=== PATIENT | male | born 1995 | race Caucasian/White ===

== ENCOUNTER 2018-07-03 22:19 | Inpatient (IN) | payer BC ==
[~2018-07-03] VITALS: Ht 182.9 cm; Wt 67.3 kg
[2018-07-03 23:40] VITALS: BP 99/50; PULSE 87; RESP 18
[2018-07-04] VITALS (12 sets, daily range): BP systolic 102–128; BP diastolic 52–79; PULSE 61–90; RESP 18–20; Ht 182.9 cm; Wt 67.3 kg
[2018-07-04] MEDS ORDERED: VANCOMYCIN IV PER PHARMACY XX SCH (03:00)
[2018-07-04] MEDS ORDERED: HYDROCODONE/APAP (5/325) TAB PO PRN (03:00)
[2018-07-04] MEDS ORDERED: ONDANSETRON 4 MG TAB PO PRN (03:00)
[2018-07-04] MEDS ORDERED: VANCOMYCIN HCL 1.25 GM in SOD CHLORIDE 0.9% 250 ML IVPB ONE (03:00)
[2018-07-04] MEDS ORDERED: ACETAMINOPHEN 325 MG TAB PO PRN (03:00)
[2018-07-04] MEDS: SOD CHLORIDE 0.9% 1,000 ML IV SCH ×3 (04:23→22:39)
[2018-07-04] MEDS: PIPER-TAZO 3.375 GM IV (PMX) 100 ML IVPB SCH ×3 (05:35→21:25)
[2018-07-04] MEDS: PANTOPRAZOLE (EC) 40 MG TAB PO SCH (05:35)
[2018-07-04] MEDS: [UNRECOGNIZED DRUG - OTHER] BUCCAL SCH ×2 (05:47→23:02)
[2018-07-04] MEDS: NALOXONE BUCCAL SCH ×2 (05:47→23:02)
[2018-07-04] MEDS: VANCOMYCIN 1 GM 250 ML IVPB SCH ×3 (06:56→22:37)
[2018-07-04] MEDS ORDERED: SOD CHLORIDE 0.9% 100 ML ONE (13:29)
[2018-07-04] MEDS ORDERED: IOHEXOL 300MG/ML 150 ML BTL ONE (13:29)
--- NOTE | 2018-07-04 13:29 | HP ---
MAUROLAILATAMMYJoshCLAUDIA 07/04/18 1323: Date/Time of Note Date/Time of Note DATE: 07/04/18 TIME: 12:50 Assessment/Plan VTE Prophylaxis Risk score (from [facility] [place] risk: 1 SCD applied (from [facility] [place] No SCD contraindicated: low risk/ambulating Pharmacological prophylaxis: LMWH Lines/Catheters [facility] Per[facility] IV Assessment/Plan Hospital Course 1. Cellulitis right arm 2. Superficial thrombophlebitis right cephalic vein in the forearm 3. Polysubstance abuse 4. Anemia normocytic Assessment/Plan -DVT proph Lovenox 40 mg -GI prophylaxis Protonix -c/w IV fluids -warm compresses -c/w IV fluids -psych consult shakir Starks -Dr Deutsch consultation, called Result Diagram: 07/04/18 0620 Results 24hrs Laboratory Tests Test 07/04/18 06:20 Blood Urea Nitrogen 17 Creatinine 0.86 HPI/ROS Admit Date/Time Admit Date/Time July 03, 2018 at 23:39 Hx of Present Illness This 22-year-old male with a history of polysubstance abuse after injections of heroine 1 week ago had edema and pain in his right arm. Eventually he went to [facility] on July 03, 2018 and ultrasound of extremity showed superficial thrombophlebitis of the cephalic vein, diffusely edematous primitive and echogenic soft tissue reflecting cellulitis, formed fluid collection to suggest abscess. CBC was drawn that showed WBC 9.5 RBC 4.35 hemoglobin 12.3 hematocrit 37 MCV 85 MCH 28 platelets 197% of neutrophiles 78.9 and rest is normal BMP showed sodium 128 potassium 4.2 chloride 90 CO2 22 anion gap 16 glucose 106 BUN 12 creatinine 0.79, 9.5 albumin 4.1 bilirubin 0.5 total protein 8.5 AST 29 ALT 20 alkaline phosphatase 104 globulin 4.4 there was a urinalysis performed that show 6-10 RBC. 0.5 WBC and 30 mg/dL protein in urine In the emergency room vital signs were normal consent of CBC were drawn the WBC was down to 8.3-3.9 hemoglobin 11.9 hematocrit 35. Patient was transferred from the emergency room to [facility] per insurance purposes under care of Dr. Hatfield. ROS does not want to talk in withdraw stage Eyes: no complaints Respiratory: no complaints Cardiovascular: no complaints Gastrointestinal: no complaints Musculoskeletal: restricted range of motion, swelling ( right arm) PMH/Family/Social Past Medical History Medical History: no pertinent history Medications Current Medications Sodium Chloride 1,000 ml @ 100 mls/hr Q10H IV Last administered on 07/04/18at 04:23; Admin Dose 100 MLS/HR; Start 07/04/18 at 03:00 Vancomycin HCl (Vanco Iv Per Pharmacy) VANCOMYCIN PER PHARMACY PER PROTOCOL XX ; Start 07/04/18 at 03:00 Piperacillin Sod/ Tazobactam Sod 100 ml @ 200 mls/hr Q8 IVPB Last administered on 07/04/18at 05:35; Admin Dose 200 MLS/HR; Start 07/04/18 at 06:00 Acetaminophen (Tylenol Tab) 650 mg Q6H PRN PO MILD PAIN(1-3)OR ELEVATED TEMP; Start 07/04/18 at 03:00 Ondansetron HCl (Zofran Tab) 4 mg Q6H PRN PO NAUSEA AND/OR VOMITING; Start at 03:00 Pantoprazole (Protonix Tab) 40 mg DAILY@06 PO Last administered on 07/04/18at 05:35; Admin Dose 40 MG; Start 07/04/18 at 06:00 Vancomycin HCl 250 ml @ 125 mls/hr Q8H IVPB Last administered on 07/04/18at 06:56; Admin Dose 125 MLS/HR; Start 07/04/18 at 07:00 Non-Formulary Medication 1 ea BID BUCCAL Last administered on 07/04/18at 05:47; Admin Dose 1 EA; Start 07/04/18 at 09:00; Stop 07/05/18 at 21:01 Non-Formulary Medication 0.5 ea TID BUCCAL ; Start 07/06/18 at 09:00; Stop 07/07/18 at 21:01 Non-Formulary Medication 0.5 ea BID BUCCAL ; Start 07/08/18 at 09:00; Stop 07/09/18 at 21:01 Coded Allergies: No Known Allergy (Unverified , 07/04/18) Past Surgical History Past Surgical Hx: other (Mole removal) Social History Alcohol Use: none Smoking Status: Current every day smoker Drug Use: other (Vaping) Exam/Review of Systems Vital Signs Vitals Vital Signs Date Temp Pulse Resp B/P (MAP) Pulse Ox O2 O2 Flow FiO2 Time Delivery Rate 07/04/18 75 12:16 07/04/18 99.1 18 114/62 98 11:04 (79) 07/04/18 Room Air 04:13 Intake and Output 07/03/18 07/03/18 07/04/18 1515:00 23:00 07:00 IntakeIntake Total 250 ml OutputOutput Total 400 ml BalanceBalance -150 ml Exam Exam Numerous tattoos Constitutional: alert, oriented Psych: no complaints Head: normocephalic Respiratory: clear to auscultation Cardiovascular: regular rate and rhythm Gastrointestinal: soft Genitourinary - Male: CVA tenderness; No nl penis, No nl scrotum, No discharge, No other Musculoskeletal: swelling (Right arm, numerous scars) AB HATFIELD MD 07/04/18 1610: Assessment/Plan Assessment/Plan Assessment/Plan seen and examined rue edema/celliultis/hematoma iv abx suboxane id consult dr deutsch Result Diagram: 07/04/18 0620 PMH/Family/Social Past Medical History Coded Allergies: No Known Allergy (Unverified , 07/04/18) CLAUDIA LEMUS July 04, 2018 13:23 AB HATFIELD MD July 04, 2018 16:10
[2018-07-04] MEDS: ENOXAPARIN 40 MG/0.4 ML SYG SC SCH (14:36)
--- NOTE | 2018-07-04 18:13 | CONS ---
DATE OF ADMISSION: 07/03/2018 DATE OF CONSULTATION: 07/04/2018 TYPE OF CONSULTATION: Infectious disease. REQUESTING PHYSICIAN: Lizzy Hatfield MD Thank you for this consultation. HISTORY OF PRESENT ILLNESS: This is a young white man with a history of heroin abuse who was admitted with right upper extremity cellulitis, superficial thrombophlebitis. Patient is currently on IV vancomycin and Zosyn. His BUN is 17, creatinine 0.86. I do not have any results of his CBC yet. CT of the right upper extremity revealed diffuse soft tissue swelling without focal abscess detected, suggestive of cellulitis. Please see full report in the chart. VITAL SIGNS: Temperature 98.8, pulse 80, respirations 19, blood pressure 111/57, saturation 99% on room air. SOCIAL HISTORY: The patient is a drug addict. He lives on and off with his mother who is at bedside. PHYSICAL EXAMINATION: GENERAL: Well-developed, well-nourished young man who is sleeping, arousable, in no distress. HEENT: Head atraumatic, normocephalic. NECK: Supple. CHEST: Rise symmetrical. Breath sounds diminished to bases. HEART: S1, S2. ABDOMEN: Soft, bowel sounds present. EXTREMITIES: With right upper extremity edema, erythema, swelling and very painful to touch and also with range of motion. DIAGNOSTIC IMPRESSION: A 22-year-old man with a history of drug abuse, admitted with right upper extremity cellulitis. The patient also has superficial thrombophlebitis. He is on appropriate antithrombotic regimen. PLAN: Recommend to keep his right upper extremity elevated and apply warm moist compresses. Monitor renal function. Await for clinical improvement. SRINIVASA Medley Dictated By: THOMAS JAIMES DATA ANALYST for CHRIS CLIFTON MD NI/NTS Conf#: [id number] DID#: [id number] CC: LIZZY HATFIELD;*EndCC* MTDD
--- NOTE | 2018-07-04 22:11 | CONS ---
Assessment/Plan Assessment/Plan Hospital Course (Demo Recall) + bld cx per report from another facility. Consider 2D ECHO. Repeat bld cx Consultation Date/Type/Reason Admit Date/Time July 03, 2018 at 23:39 Initial Consult Date Type of Consult id Date/Time of Note DATE: 07/04/18 TIME: 22:11 Exam/Review of Systems Exam Vitals Vital Signs Date Temp Pulse Resp B/P (MAP) Pulse Ox O2 O2 Flow FiO2 Time Delivery Rate 07/04/18 80 20:00 07/04/18 98.7 18 111/60 98 19:39 (77) 07/04/18 Room Air 04:13 Intake and Output 07/03/18 07/03/18 07/04/18 1515:00 23:00 07:00 IntakeIntake Total 250 ml OutputOutput Total 400 ml BalanceBalance -150 ml Results Result Diagram: 07/04/18 0620 Results 24hrs Laboratory Tests Test 07/04/18 06:20 Blood Urea Nitrogen 17 Creatinine 0.86 Medications Medication Current Medications Sodium Chloride 1,000 ml @ 100 mls/hr Q10H IV Last administered on 07/04/18at 14:30; Admin Dose 100 MLS/HR; Start 07/04/18 at 03:00 Vancomycin HCl (Vanco Iv Per Pharmacy) VANCOMYCIN PER PHARMACY PER PROTOCOL XX ; Start 07/04/18 at 03:00 Piperacillin Sod/ Tazobactam Sod 100 ml @ 200 mls/hr Q8 IVPB Last administered on 07/04/18at 21:25; Admin Dose 200 MLS/HR; Start 07/04/18 at 06:00 Acetaminophen (Tylenol Tab) 650 mg Q6H PRN PO MILD PAIN(1-3)OR ELEVATED TEMP; Start 07/04/18 at 03:00 Ondansetron HCl (Zofran Tab) 4 mg Q6H PRN PO NAUSEA AND/OR VOMITING; Start 07/04/18 at 03:00 Pantoprazole (Protonix Tab) 40 mg DAILY@06 PO Last administered on 07/04/18at 05:35; Admin Dose 40 MG; Start 07/04/18 at 06:00 Vancomycin HCl 250 ml @ 125 mls/hr Q8H IVPB Last administered on 07/04/18at 14:30; Admin Dose 125 MLS/HR; Start 07/04/18 at 07:00 Non-Formulary Medication 1 ea BID BUCCAL Last administered on 07/04/18at 05:47; Admin Dose 1 EA; Start 07/04/18 at 09:00; Stop 07/05/18 at 21:01 Non-Formulary Medication 0.5 ea TID BUCCAL ; Start 07/06/18 at 09:00; Stop 07/07/18 at 21:01 Non-Formulary Medication 0.5 ea BID BUCCAL ; Start 07/08/18 at 09:00; Stop 07/09/18 at 21:01 Miscellaneous Information (*Rx Drug Level Order Reminder*) VANCO TR LEVEL PRIOR... 1400 ONCE XX ; Start 07/05/18 at 14:00; Stop 07/05/18 at 14:01 Enoxaparin Sodium (Lovenox) 40 mg DAILY SC Last administered on 07/04/18at 14:36; Admin Dose 40 MG; Start 07/04/18 at 14:00 Neomycin/ Polymyxin/ Bacitracin (Neosporin Topical Oint) 1 applic BID TOP ; Start 07/04/18 at 23:00 THOMAS JAIMES NP July 04, 2018 22:11
[2018-07-04] MEDS ORDERED: NITROGLYCERIN (SL) 0.4 MG TAB SL PRN (22:30)
[2018-07-04] MEDS: NEOMYC/POLYMYX/BACIT 30 GM OINT TOP SCH (23:50)
[2018-07-05] VITALS (12 sets, daily range): BP systolic 97–114; BP diastolic 44–79; PULSE 66–77; RESP 18–19
[2018-07-05] MEDS: PANTOPRAZOLE (EC) 40 MG TAB PO SCH (05:39)
[2018-07-05] MEDS: PIPER-TAZO 3.375 GM IV (PMX) 100 ML IVPB SCH ×3 (05:41→21:18)
[2018-07-05] MEDS: SOD CHLORIDE 0.9% 1,000 ML IV SCH ×3 (06:00→21:00)
[2018-07-05] MEDS: VANCOMYCIN 1 GM 250 ML IVPB SCH ×3 (06:31→22:51)
[2018-07-05] MEDS: NEOMYC/POLYMYX/BACIT 30 GM OINT TOP SCH ×2 (08:46→21:18)
[2018-07-05] MEDS: ENOXAPARIN 40 MG/0.4 ML SYG SC SCH (08:55)
--- NOTE | 2018-07-05 08:59 | PN ---
Date/Time of Note Date/Time of Note DATE: 07/05/18 TIME: 08:59 Assessment/Plan VTE Prophylaxis Risk score (from [facility] [place]0 risk: 1 SCD applied (from [facility] [place]): No SCD contraindicated: other Pharmacological prophylaxis: LMWH Lines/Catheters IV Catheter Type (from [facility]): Peripheral IV Urinary Cath still in place: No Assessment/Plan Hospital Course 1. Sepsis. Blood culture from [facility] is positive. Cellulitis right arm 2. Superficial thrombophlebitis right cephalic vein in the forearm 3. Polysubstance abuse 4. Anemia normocytic Assessment/Plan -echocardiogram -c/w IV fluids -c/w IV a/b. ID on case -dr Webb is on case -telemetry service Result Diagram: 07/05/18 0607 07/05/18 0607 Results 24hrs Laboratory Tests Test 07/04/18 22:31 07/05/18 06:07 Troponin I < 0.012 < 0.012 White Blood Count 6.0 Red Blood Count 4.15 L Hemoglobin 11.4 L Hematocrit 36.3 L Mean Corpuscular Volume 87.5 Mean Corpuscular Hemoglobin 27.5 L Mean Corpuscular Hemoglobin Concent 31.4 L Red Cell Distribution Width 13.7 Platelet Count 209 Mean Platelet Volume 9.7 Immature Granulocytes % 0.200 Neutrophils % 55.5 Lymphocytes % 27.5 Monocytes % 15.1 H Eosinophils % 1.0 Basophils % 0.7 Nucleated Red Blood Cells % 0.0 Immature Granulocytes # 0.010 Neutrophils # 3.4 Lymphocytes # 1.7 Monocytes # 0.9 Eosinophils # 0.1 Basophils # 0.0 Nucleated Red Blood Cells # 0.0 Sodium Level 138 Potassium Level 4.0 Chloride Level 104 Carbon Dioxide Level 28 Anion Gap 6 Blood Urea Nitrogen 16 Creatinine 0.76 Est Glomerular Filtrat Rate mL/min > 60 Glucose Level 92 Calcium Level 8.6 Exam/Review of Systems Exam Vitals Vital Signs Date Temp Pulse Resp B/P (MAP) Pulse Ox O2 O2 Flow FiO2 Time Delivery Rate 07/05/18 98.6 77 18 99/57 (71) 96 07:53 07/04/18 Room Air 04:13 Intake and Output 07/04/18 07/04/18 07/05/18 1515:00 23:00 07:00 IntakeIntake Total 2350 ml 2070 ml OutputOutput Total 700 ml 800 ml BalanceBalance 1650 ml 1270 ml Exam sleeping Neck: supple Respiratory: clear to auscultation Cardiovascular: regular rate and rhythm Gastrointestinal: soft Musculoskeletal: swelling (right arm) Results Results 24hrs Laboratory Tests Test 07/04/18 22:31 07/05/18 06:07 Troponin I < 0.012 < 0.012 White Blood Count 6.0 Red Blood Count 4.15 L Hemoglobin 11.4 L Hematocrit 36.3 L Mean Corpuscular Volume 87.5 Mean Corpuscular Hemoglobin 27.5 L Mean Corpuscular Hemoglobin Concent 31.4 L Red Cell Distribution Width 13.7 Platelet Count 209 Mean Platelet Volume 9.7 Immature Granulocytes % 0.200 Neutrophils % 55.5 Lymphocytes % 27.5 Monocytes % 15.1 H Eosinophils % 1.0 Basophils % 0.7 Nucleated Red Blood Cells % 0.0 Immature Granulocytes # 0.010 Neutrophils # 3.4 Lymphocytes # 1.7 Monocytes # 0.9 Eosinophils # 0.1 Basophils # 0.0 Nucleated Red Blood Cells # 0.0 Sodium Level 138 Potassium Level 4.0 Chloride Level 104 Carbon Dioxide Level 28 Anion Gap 6 Blood Urea Nitrogen 16 Creatinine 0.76 Est Glomerular Filtrat Rate mL/min > 60 Glucose Level 92 Calcium Level 8.6 Medications Medication Current Medications Sodium Chloride 1,000 ml @ 100 mls/hr Q10H IV Last administered on 07/05/18at 06:00; Admin Dose 100 MLS/HR; Start 07/04/18 at 03:00 Vancomycin HCl (Vanco Iv Per Pharmacy) VANCOMYCIN PER PHARMACY PER PROTOCOL XX ; Start 07/04/18 at 03:00 Piperacillin Sod/ Tazobactam Sod 100 ml @ 200 mls/hr Q8 IVPB Last administered on 07/05/18at 05:41; Admin Dose 200 MLS/HR; Start 07/04/18 at 06:00 Acetaminophen (Tylenol Tab) 650 mg Q6H PRN PO MILD PAIN(1-3)OR ELEVATED TEMP; Start 07/04/18 at 03:00 Ondansetron HCl (Zofran Tab) 4 mg Q6H PRN PO NAUSEA AND/OR VOMITING; Start 07/04/18 at 03:00 Pantoprazole (Protonix Tab) 40 mg DAILY@06 PO Last administered on 07/04/18at 05:35; Admin Dose 40 MG; Start 07/04/18 at 06:00 Vancomycin HCl 250 ml @ 125 mls/hr Q8H IVPB Last administered on 07/05/18at 06:31; Admin Dose 125 MLS/HR; Start 07/04/18 at 07:00 Non-Formulary Medication 1 ea BID BUCCAL Last administered on 07/04/18at 23:02; Admin Dose 1 EA; Start 07/04/18 at 09:00; Stop 07/05/18 at 21:01 Non-Formulary Medication 0.5 ea TID BUCCAL ; Start 07/06/18 at 09:00; Stop 07/07/18 at 21:01 Non-Formulary Medication 0.5 ea BID BUCCAL ; Start 07/08/18 at 09:00; Stop 07/09/18 at 21:01 Miscellaneous Information (*Rx Drug Level Order Reminder*) VANCO TR LEVEL PRIOR... 1400 ONCE XX ; Start 07/05/18 at 14:00; Stop 07/05/18 at 14:01 Enoxaparin Sodium (Lovenox) 40 mg DAILY SC Last administered on 07/05/18at 08:55; Admin Dose 40 MG; Start 07/04/18 at 14:00 Neomycin/ Polymyxin/ Bacitracin (Neosporin Topical Oint) 1 applic BID TOP Last administered on 07/05/18at 08:46; Admin Dose 1 APPLIC; Start 07/04/18 at 23:00 Nitroglycerin (Nitroglycerin (Sl Tab) 0.4 Mg) 1 tab Q5M PRN SL ANGINA Last administered on 07/04/18at 22:22; Admin Dose 1 TAB; Start 07/04/18 at 22:30 CLAUDIA LEMUS July 05, 2018 08:59
[2018-07-05] MEDS: [UNRECOGNIZED DRUG - OTHER] BUCCAL SCH ×2 (09:28→22:37)
[2018-07-05] MEDS: NALOXONE BUCCAL SCH ×2 (09:28→22:37)
[2018-07-05] MEDS ORDERED: BISACODYL (EC) 5 MG TAB PO PRN (16:30)
[2018-07-05] MEDS: POLYETHYLENE GLYCOL 17 GM PACKET PO SCH (16:44)
--- NOTE | 2018-07-05 19:04 | CONS ---
Assessment/Plan Assessment/Plan Hospital Course (Demo Recall) ID PROGRESS NOTE CURRENT ABX: DAY #=>Vanco IV + Zosyn 24H INTERVAL SUMMARY * Sleeping, no fevers, VSS, NAD -- chart reviewed IMAGING * 07/04/18 CT RUEXT: IMPRESSION: Diffuse soft tissue swelling without focal abscess detected. Findings suggest cellulitis. There is evidence of a filling defects/clot in a superficial, possibly basilic vein at the mid forearm. Recommend venous Doppler ultrasound of the upper extremity for further evaluation. MICRO/OTHER * (?)MRSA NARES PHYSICAL EXAMINATION: GENERAL: VSS, NAD, HEENT: AT, NC, NECK: WNL CHEST: Equal chest rise bilaterally without dyspnea on observation ABD: Soft, ND EXTREMITIES: Warm, dry RUEXT EDEMA/ erythema SKIN: No rash, no diaphoresis ID ASSESSMENT 22 yo M admit with: 1. Sepsis. Blood culture from [place] is positive. 2. Cellulitis right arm w/injection wounds 3. Left arm scrape wound 4. Superficial thrombophlebitis right cephalic vein in the forearm 5. Polysubstance abuse 6. Anemia normocytic 7. Tobaccoism - 1PPWeek (?)MRSA Nares ABX ALLERGIES: KNDA INVASIVES: PIV CURRENT ABX: DAY # =>Vanco IV + Zosyn ID RECOMMENDATIONS/PLAN: 1. Continue current ABX 2. Will f/u tomorrow . Consultation Date/Type/Reason Admit Date/Time July 03, 2018 at 23:39 Initial Consult Date Date/Time of Note DATE: 07/05/18 TIME: 19:04 Exam/Review of Systems Exam Vitals Vital Signs Date Temp Pulse Resp B/P (MAP) Pulse Ox O2 O2 Flow FiO2 Time Delivery Rate 07/05/18 66 16:00 07/05/18 98.4 19 109/59 97 15:41 (76) 07/04/18 Room Air 04:13 Intake and Output 07/04/18 07/04/18 07/05/18 1515:00 23:00 07:00 IntakeIntake Total 2350 ml 2070 ml OutputOutput Total 700 ml 800 ml BalanceBalance 1650 ml 1270 ml Results Result Diagram: 07/05/18 0607 07/05/18 0607 Results 24hrs Laboratory Tests Test 07/04/18 22:31 07/05/18 06:07 07/05/18 10:06 07/05/18 14:31 Troponin I < 0.012 < 0.012 < 0.012 White Blood Count 6.0 Red Blood Count 4.15 L Hemoglobin 11.4 L Hematocrit 36.3 L Mean Corpuscular 87.5 Volume Mean Corpuscular 27.5 L Hemoglobin Mean Corpuscular 31.4 L Hemoglobin Concent Red Cell 13.7 Distribution Width Platelet Count 209 Mean Platelet Volume 9.7 Immature 0.200 Granulocytes % Neutrophils % 55.5 Lymphocytes % 27.5 Monocytes % 15.1 H Eosinophils % 1.0 Basophils % 0.7 Nucleated Red Blood 0.0 Cells % Immature 0.010 Granulocytes # Neutrophils # 3.4 Lymphocytes # 1.7 Monocytes # 0.9 Eosinophils # 0.1 Basophils # 0.0 Nucleated Red Blood 0.0 Cells # Sodium Level 138 Potassium Level 4.0 Chloride Level 104 Carbon Dioxide Level 28 Anion Gap 6 Blood Urea Nitrogen 16 Creatinine 0.76 Est Glomerular > 60 Filtrat Rate mL/min Glucose Level 92 Calcium Level 8.6 Vancomycin Level 13.5 Trough Medications Medication Current Medications Sodium Chloride 1,000 ml @ 100 mls/hr Q10H IV Last administered on 07/05/18at 06:00; Admin Dose 100 MLS/HR; Start 07/04/18 at 03:00 Vancomycin HCl (Vanco Iv Per Pharmacy) VANCOMYCIN PER PHARMACY PER PROTOCOL XX ; Start 07/04/18 at 03:00 Piperacillin Sod/ Tazobactam Sod 100 ml @ 200 mls/hr Q8 IVPB Last administered on 07/05/18at 14:14; Admin Dose 200 MLS/HR; Start 07/04/18 at 06:00 Acetaminophen (Tylenol Tab) 650 mg Q6H PRN PO MILD PAIN(1-3)OR ELEVATED TEMP; Start 07/04/18 at 03:00 Ondansetron HCl (Zofran Tab) 4 mg Q6H PRN PO NAUSEA AND/OR VOMITING; Start 07/04/18 at 03:00 Pantoprazole (Protonix Tab) 40 mg DAILY@06 PO Last administered on 07/04/18at 05:35; Admin Dose 40 MG; Start 07/04/18 at 06:00 Vancomycin HCl 250 ml @ 125 mls/hr Q8H IVPB Last administered on 07/05/18at 15:45; Admin Dose 125 MLS/HR; Start 07/04/18 at 07:00 Non-Formulary Medication 1 ea BID BUCCAL Last administered on 07/05/18at 09:28; Admin Dose 1 EA; Start 07/04/18 at 09:00; Stop 07/05/18 at 21:01 Non-Formulary Medication 0.5 ea TID BUCCAL ; Start 07/06/18 at 09:00; Stop 07/07/18 at 21:01 Non-Formulary Medication 0.5 ea BID BUCCAL ; Start 07/08/18 at 09:00; Stop 07/09/18 at 21:01 Enoxaparin Sodium (Lovenox) 40 mg DAILY SC Last administered on 07/05/18at 08:55; Admin Dose 40 MG; Start 07/04/18 at 14:00 Neomycin/ Polymyxin/ Bacitracin (Neosporin Topical Oint) 1 applic BID TOP Last administered on 07/05/18at 08:46; Admin Dose 1 APPLIC; Start 07/04/18 at 23:00 Nitroglycerin (Nitroglycerin (Sl Tab) 0.4 Mg) 1 tab Q5M PRN SL ANGINA Last administered on 07/04/18at 22:22; Admin Dose 1 TAB; Start 07/04/18 at 22:30 Polyethylene Glycol (Miralax) 17 gm DAILY PO Last administered on 07/05/18at 16:44; Admin Dose 17 GM; Start 07/05/18 at 16:30 Bisacodyl (Dulcolax) 5 mg BID PRN PO constipation; Start 07/05/18 at 16:30 CHRIS POOLE NP July 05, 2018 19:04
--- NOTE | 2018-07-05 20:19 | RADRPT ---
Echocardiogram Report Patient Name: DIANNA ARNOLDPatient ID: [id number] : 1995 (22y 6m)Study Date: 07/05/2018 8:55:07 AM Gender: Sanjeevcession #: [id number] Tech: [id number] Location: [facility] Ref.Physician: CLAUDIA LEMUS Height(Cm): 183 BSA: 1.85Weight(Kg): 67.1 Quality: AdequateOrder Physician: CLAUDIA LEMUS Account #: Procedures: Echocardiographic Report: Transthoracic echocardiogram with complete 2D, M-Mode, and doppler examination. Indications: Sepsis; IV drug abuse. Measurements: 2D/M Mode Doppler Measurement Value Normal Range Measurement Value Normal Range LVIDd 2D 4.8 [ 4.2 - 5.8 ] cm AV Peak Philip 1.2 [ 100.0 - 170.0 ] cm/se c LVIDs 2D 3.0 [ 2.5 - 4.0 ] cm AV Peak PG 6.0 [ 2.0 - 9.0 ] mmHg LVPWd 2D 1.0 [ 0.6 - 1.0 ] cm LVOT Peak Philip 1.0 [ 70.0 - 110.0 ] cm/sec IVSd 2D 0.9 [ 0.6 - 1.0 ] cm LVOT Peak PG 4.0 [ 2.0 - 6.0 ] mmHg AoR Diam 2D 3.2 [ 2.6 - 3.4 ] cm MV E Peak Philip 0.8 [ 60.0 - 130.0 ] cm/sec EDV 2D 109.0 [ 62.0 - 150.0 ] ml MV A Peak Philip 0.4 [ 100.0 - 120.0 ] cm/se c ESV 2D 35.0 [ 21.0 - 61.0 ] ml MV E/A 2.0 [ 0.8 - 1.5 ] ratio EF 2D 67.9 [ 52.0 - 72.0 ] percent MV PHT 28.0 [ 20.0 - 100.0 ] msec LA Dimen 2D 3.0 [ 3.0 - 4.0 ] cm MV Decel Time 95 [ 104 - 258 ] msec MV Decel C[place] 9 Lat E` Philip 0.2 [ 10.0 - 15.0 ] cm/sec Lateral E/E` 4.8 [ 1.0 - 2.0 ] ratio Med E` Philip 0.2 cm/sec MV E/A 2.0 [ 0.8 - 1.5 ] ratio MVA PHT 7.9 [ 2.0 - 4.0 ] cm2 PV Peak Philip 0.8 [ 40.0 - 80.0 ] cm/sec PV Peak PG 3.0 mmHg Findings: Left Ventricle: Lower limits of normal systolic function. Ejection fraction is visually estimated at 50 %. Tissue Doppler/Mitral Doppler indices are within normal limits. E/E'= 5. Right Ventricle: Normal right ventricular size. Normal right ventricular systolic function. Left Atrium: The left atrium is normal in size. Right Atrium: The right atrium is normal in size. Atrial Septum: Normal atrial septum. Mitral Valve: Normal appearance and function of the mitral valve with trace physiologic regurgitation. Aortic Valve: Normal appearance of the aortic valve. No significant aortic stenosis or insufficiency. Tricuspid Valve: Normal appearance and function of the tricuspid valve with trace physiologic regurgitation. Unable to obtain RVSP due to minimal presence of tricuspid regurgitation. Pulmonic Valve: Normal pulmonic valve appearance. Pericardium: Normal pericardium with no significant pericardial effusion. Aorta: Normal aortic root. IVC: Normal size and normal respiratory collapse consistent with normal right atrial pressure. Pulmonary Artery: Normal pulmonary artery size. Conclusions: Lower limits of normal systolic function. Ejection fraction is visually estimated at 50 %. Tissue Doppler/Mitral Doppler indices are within normal limits. E/E'= 5. Normal appearance and function of the mitral valve with trace physiologic regurgitation. Normal appearance and function of the tricuspid valve with trace physiologic regurgitation. Unable to obtain RVSP due to minimal presence of tricuspid regurgitation. Electronically Signed By: Ian Burrows 2018-07-05 20:18:28 PDT
[2018-07-06] VITALS (9 sets, daily range): BP systolic 108–133; BP diastolic 57–82; PULSE 58–79; RESP 18–20
[2018-07-06] MEDS: PIPER-TAZO 3.375 GM IV (PMX) 100 ML IVPB SCH ×3 (05:23→21:32)
[2018-07-06] MEDS: PANTOPRAZOLE (EC) 40 MG TAB PO SCH (05:23)
[2018-07-06] MEDS: VANCOMYCIN 1 GM 250 ML IVPB SCH ×3 (06:07→23:45)
[2018-07-06] MEDS: POLYETHYLENE GLYCOL 17 GM PACKET PO SCH (08:29)
[2018-07-06] MEDS: NALOXONE BUCCAL SCH ×3 (08:30→21:00)
[2018-07-06] MEDS: [UNRECOGNIZED DRUG - OTHER] BUCCAL SCH ×3 (08:30→21:00)
[2018-07-06] MEDS: NEOMYC/POLYMYX/BACIT 30 GM OINT TOP SCH ×2 (08:33→23:45)
[2018-07-06] MEDS: ENOXAPARIN 40 MG/0.4 ML SYG SC SCH (09:26)
--- NOTE | 2018-07-06 11:59 | PN ---
Date/Time of Note Date/Time of Note DATE: 07/06/18 TIME: 11:57 Assessment/Plan VTE Prophylaxis [place] [facility] [place]: 4 [place]CD [place] [facility] [place] Yes Pharmacological prophylaxis: LMWH Lines/Catheters IV Catheter Type (from [facility]): Peripheral IV Urinary Cath still in place: No Assessment/Plan Hospital Course 1. Sepsis. Blood culture from [facility] is positive. Cellulitis right arm improved 2. Superficial thrombophlebitis right cephalic vein in the forearm 3. Polysubstance abuse 4. Anemia normocytic Assessment/Plan -echocardiogram is normal -c/w decreased IV fluids -ferlicit -drug counselling session -c/w IV a/b. ID on case -dr Webb is on case, pt will start on methadone -medsurg service Result Diagram: 07/06/18 0551 07/06/18 0551 Results 24hrs Laboratory Tests Test 07/05/18 14:31 07/06/18 05:51 Vancomycin Level Trough 13.5 White Blood Count 5.2 Red Blood Count 4.19 L Hemoglobin 11.4 L Hematocrit 36.7 L Mean Corpuscular Volume 87.6 Mean Corpuscular Hemoglobin 27.2 L Mean Corpuscular Hemoglobin Concent 31.1 L Red Cell Distribution Width 14.0 Platelet Count 248 Mean Platelet Volume 9.6 Immature Granulocytes % 0.200 Neutrophils % 42.0 Lymphocytes % 40.8 Monocytes % 13.5 H Eosinophils % 2.5 Basophils % 1.0 Nucleated Red Blood Cells % 0.0 Immature Granulocytes # 0.010 Neutrophils # 2.2 Lymphocytes # 2.1 Monocytes # 0.7 Eosinophils # 0.1 Basophils # 0.1 Nucleated Red Blood Cells # 0.0 Sodium Level 141 Potassium Level 4.2 Chloride Level 104 Carbon Dioxide Level 28 Anion Gap 9 Blood Urea Nitrogen 13 Creatinine 0.73 Est Glomerular Filtrat Rate mL/min > 60 Glucose Level 83 Calcium Level 9.1 Hepatitis B Surface Antigen NEGATIVE Hepatitis B Core Total Antibody NEGATIVE Hepatitis C Antibody NEGATIVE Subjective 24 Hr Interval Summary Skin: erythema (decreased) Exam/Review of Systems Exam Vitals Vital Signs Date Temp Pulse Resp B/P (MAP) Pulse Ox O2 O2 Flow FiO2 Time Delivery Rate 07/06/18 98.3 71 20 109/64 99 Room Air 11:35 (79) Intake and Output 5/07/05/18 07/06/18 1414:59 22:59 06:59 IntakeIntake Total 2300 ml 1850 ml OutputOutput Total 1000 ml 900 ml BalanceBalance 1300 ml 950 ml Constitutional: alert, oriented Cardiovascular: regular rate and rhythm Gastrointestinal: soft Extremities: edema (righ arm) Results Results 24hrs Laboratory Tests Test 07/05/18 14:31 07/06/18 05:51 Vancomycin Level Trough 13.5 White Blood Count 5.2 Red Blood Count 4.19 L Hemoglobin 11.4 L Hematocrit 36.7 L Mean Corpuscular Volume 87.6 Mean Corpuscular Hemoglobin 27.2 L Mean Corpuscular Hemoglobin Concent 31.1 L Red Cell Distribution Width 14.0 Platelet Count 248 Mean Platelet Volume 9.6 Immature Granulocytes % 0.200 Neutrophils % 42.0 Lymphocytes % 40.8 Monocytes % 13.5 H Eosinophils % 2.5 Basophils % 1.0 Nucleated Red Blood Cells % 0.0 Immature Granulocytes # 0.010 Neutrophils # 2.2 Lymphocytes # 2.1 Monocytes # 0.7 Eosinophils # 0.1 Basophils # 0.1 Nucleated Red Blood Cells # 0.0 Sodium Level 141 Potassium Level 4.2 Chloride Level 104 Carbon Dioxide Level 28 Anion Gap 9 Blood Urea Nitrogen 13 Creatinine 0.73 Est Glomerular Filtrat Rate mL/min > 60 Glucose Level 83 Calcium Level 9.1 Hepatitis B Surface Antigen NEGATIVE Hepatitis B Core Total Antibody NEGATIVE Hepatitis C Antibody NEGATIVE Medications Medication Current Medications Sodium Chloride 1,000 ml @ 100 mls/hr Q10H IV Last administered on 07/05/18at 21:00; Admin Dose 100 MLS/HR; Start 07/04/18 at 03:00 Vancomycin HCl (Vanco Iv Per Pharmacy) VANCOMYCIN PER PHARMACY PER PROTOCOL XX ; Start 07/04/18 at 03:00 Piperacillin Sod/ Tazobactam Sod 100 ml @ 200 mls/hr Q8 IVPB Last administered on 07/06/18at 05:23; Admin Dose 200 MLS/HR; Start 07/04/18 at 06:00 Acetaminophen (Tylenol Tab) 650 mg Q6H PRN PO MILD PAIN(1-3)OR ELEVATED TEMP; Start 07/04/18 at 03:00 Ondansetron HCl (Zofran Tab) 4 mg Q6H PRN PO NAUSEA AND/OR VOMITING; Start 07/04/18 at 03:00 Pantoprazole (Protonix Tab) 40 mg DAILY@06 PO Last administered on 07/06/18 05:23; Admin Dose 40 MG; Start 07/04/18 at 06:00 Vancomycin HCl 250 ml @ 125 mls/hr Q8H IVPB Last administered on 07/06/18 06:07; Admin Dose 125 MLS/HR; Start 07/04/18 at 07:00 Non-Formulary Medication 0.5 ea TID BUCCAL Last administered on 07/06/18 08:30; Admin Dose 0.5 EA; Start 07/06/18 at 09:00; Stop 07/07/18 at 21:01 Non-Formulary Medication 0.5 ea BID BUCCAL ; Start 07/08/18 at 09:00; Stop 07/09/18 at 21:01 Enoxaparin Sodium (Lovenox) 40 mg DAILY SC Last administered on 07/06/18 09:26; Admin Dose 40 MG; Start 07/04/18 at 14:00 Neomycin/ Polymyxin/ Bacitracin (Neosporin Topical Oint) 1 applic BID TOP Last administered on 07/06/18at 08:33; Admin Dose 1 APPLIC; Start 07/04/18 at 23:00 Nitroglycerin (Nitroglycerin (Sl Tab) 0.4 Mg) 1 tab Q5M PRN SL ANGINA Last administered on 07/04/18at 22:22; Admin Dose 1 TAB; Start 07/04/18 at 22:30 Polyethylene Glycol (Miralax) 17 gm DAILY PO Last administered on 07/06/18at 08:29; Admin Dose 17 GM; Start 07/05/18 at 16:30 Bisacodyl (Dulcolax) 5 mg BID PRN PO constipation; Start 07/05/18 at 16:30 Ferric Sodium Gluconate Complex 125 mg/Sodium Chloride 100 ml @ 100 mls/hr DAILY@1300 IVPB ; Start 07/06/18 at 13:00; Stop 07/08/18 at 13:59 CLAUDIA LEMUS July 06, 2018 11:59
[2018-07-06] MEDS: SOD FERRIC GLUC COMPLX 125 MG in SOD CHLORIDE 0.9% 100 ML IVPB SCH (12:50)
--- NOTE | 2018-07-06 14:05 | CONS ---
Assessment/Plan Assessment/Plan Hospital Course (Demo Recall) ID PROGRESS NOTE CURRENT ABX: DAY #=>Vanco IV + Zosyn 24H INTERVAL SUMMARY * A/A/O sitting up in bed watching TV, mother in room behind the curtain talking quietly on the phone * He feels well, no fevers, VSS, NAD, he is cooperative and polite -- offers no complaints * Tolerating ABX well without side effects to date IMAGING * 07/04/18 CT RUEXT: IMPRESSION: Diffuse soft tissue swelling without focal abscess detected. Findings suggest cellulitis. There is evidence of a filling defects/clot in a superficial, possibly basilic vein at the mid forearm. Recommend venous Doppler ultrasound of the upper extremity for further evaluation. MICRO/OTHER * (-)MRSA NARES * 07/04/18 BCx (-) PHYSICAL EXAMINATION: GENERAL: VSS, NAD, HEENT: AT, NC, NECK: WNL CHEST: Equal chest rise bilaterally without dyspnea on observation ABD: Soft, ND EXTREMITIES: Warm, dry RUEXT EDEMA/ erythema SKIN: No rash, no diaphoresis ID ASSESSMENT 22 yo M admit with: 1. Sepsis. Blood culture from [place] is positive. 2. Cellulitis right arm w/injection wounds 3. Left arm scrape wound 4. Superficial thrombophlebitis right cephalic vein in the forearm 5. Polysubstance abuse 6. Anemia normocytic 7. Tobaccoism - 1PPWeek (-)MRSA Nares (-)HBV/HCV ABX ALLERGIES: KNDA INVASIVES: PIV CURRENT ABX: DAY # =>Vanco IV + Zosyn ID RECOMMENDATIONS/PLAN: 1. Continue current ABX = he will need minimum 14 days 2. Will f/u tomorrow . Consultation Date/Type/Reason Admit Date/Time July 03, 2018 at 23:39 Initial Consult Date Date/Time of Note DATE: 07/06/18 TIME: 14:01 Exam/Review of Systems Exam Vitals Vital Signs Date Temp Pulse Resp B/P (MAP) Pulse Ox O2 O2 Flow FiO2 Time Delivery Rate 07/06/18 62 12:36 07/06/18 98.3 20 109/64 99 Room Air 11:35 (79) Intake and Output 07/05/18 07/05/18 07/06/18 1515:00 23:00 07:00 IntakeIntake Total 2300 ml 1850 ml OutputOutput Total 1000 ml 900 ml BalanceBalance 1300 ml 950 ml Results Result Diagram: 07/06/18 0551 07/06/18 0551 Results 24hrs Laboratory Tests Test 07/05/18 14:31 07/06/18 05:51 Vancomycin Level Trough 13.5 White Blood Count 5.2 Red Blood Count 4.19 L Hemoglobin 11.4 L Hematocrit 36.7 L Mean Corpuscular Volume 87.6 Mean Corpuscular Hemoglobin 27.2 L Mean Corpuscular Hemoglobin Concent 31.1 L Red Cell Distribution Width 14.0 Platelet Count 248 Mean Platelet Volume 9.6 Immature Granulocytes % 0.200 Neutrophils % 42.0 Lymphocytes % 40.8 Monocytes % 13.5 H Eosinophils % 2.5 Basophils % 1.0 Nucleated Red Blood Cells % 0.0 Immature Granulocytes # 0.010 Neutrophils # 2.2 Lymphocytes # 2.1 Monocytes # 0.7 Eosinophils # 0.1 Basophils # 0.1 Nucleated Red Blood Cells # 0.0 Sodium Level 141 Potassium Level 4.2 Chloride Level 104 Carbon Dioxide Level 28 Anion Gap 9 Blood Urea Nitrogen 13 Creatinine 0.73 Est Glomerular Filtrat Rate mL/min > 60 Glucose Level 83 Calcium Level 9.1 Hepatitis B Surface Antigen NEGATIVE Hepatitis B Core Total Antibody NEGATIVE Hepatitis C Antibody NEGATIVE Medications Medication Current Medications Sodium Chloride 1,000 ml @ 50 mls/hr Q20H IV Last administered on 07/05/18at 21:00; Admin Dose 100 MLS/HR; Start 07/04/18 at 03:00 Vancomycin HCl (Vanco Iv Per Pharmacy) VANCOMYCIN PER PHARMACY PER PROTOCOL XX ; Start 07/04/18 at 03:00 Piperacillin Sod/ Tazobactam Sod 100 ml @ 200 mls/hr Q8 IVPB Last administered on 07/06/18at 05:23; Admin Dose 200 MLS/HR; Start 07/04/18 at 06:00 Acetaminophen (Tylenol Tab) 650 mg Q6H PRN PO MILD PAIN(1-3)OR ELEVATED TEMP; Start 07/04/18 at 03:00 Ondansetron HCl (Zofran Tab) 4 mg Q6H PRN PO NAUSEA AND/OR VOMITING; Start 07/04/18 at 03:00 Pantoprazole (Protonix Tab) 40 mg DAILY@06 PO Last administered on 5/26/19at 05:23; Admin Dose 40 MG; Start 07/04/18 at 06:00 Vancomycin HCl 250 ml @ 125 mls/hr Q8H IVPB Last administered on 07/06/18 06 :07; Admin Dose 125 MLS/HR; Start 07/04/18 at 07:00 Non-Formulary Medication 0.5 ea TID BUCCAL Last administered on 07/06/18 08:30; Admin Dose 0.5 EA; Start 07/06/18 at 09:00; Stop 07/07/18 at 21:01 Non-Formulary Medication 0.5 ea BID BUCCAL ; Start 07/08/18 at 09:00; Stop 07/09/18 at 21:01 Enoxaparin Sodium (Lovenox) 40 mg DAILY SC Last administered on 07/06/18 09:26; Admin Dose 40 MG; Start 07/04/18 at 14:00 Neomycin/ Polymyxin/ Bacitracin (Neosporin Topical Oint) 1 applic BID TOP Last administered on 07/06/18 08:33; Admin Dose 1 APPLIC; Start 07/04/18 at 23:00 Nitroglycerin (Nitroglycerin (Sl Tab) 0.4 Mg) 1 tab Q5M PRN SL ANGINA Last administered on 07/04/18 22:22; Admin Dose 1 TAB; Start 07/04/18 at 22:30 Polyethylene Glycol (Miralax) 17 gm DAILY PO Last administered on 07/06/18 08:29; Admin Dose 17 GM; Start 07/05/18 at 16:30 Bisacodyl (Dulcolax) 5 mg BID PRN PO constipation; Start 07/05/18 at 16:30 Ferric Sodium Gluconate Complex 125 mg/Sodium Chloride 100 ml @ 100 mls/hr DAILY@1300 IVPB Last administered on 07/06/18 12:50; Admin Dose 100 MLS/HR; Start 07/06/18 at 13:00; Stop 07/08/18 at 13:59 CHRIS POOLE NP July 06, 2018 14:05
[2018-07-06] MEDS: SOD CHLORIDE 0.9% 1,000 ML IV SCH (15:00)
[2018-07-07 02:00] VITALS: BP 100/55; PULSE 73; RESP 18
[2018-07-07] MEDS: PANTOPRAZOLE (EC) 40 MG TAB PO SCH (05:39)
[2018-07-07] MEDS: PIPER-TAZO 3.375 GM IV (PMX) 100 ML IVPB SCH ×3 (05:39→21:11)
[2018-07-07] MEDS: VANCOMYCIN 1 GM 250 ML IVPB SCH ×3 (06:44→22:51)
[2018-07-07 08:00] VITALS: BP 106/53; PULSE 68; RESP 16
--- NOTE | 2018-07-07 08:25 | PN ---
Date/Time of Note Date/Time of Note DATE: 07/07/18 TIME: 08:23 Assessment/Plan VTE Prophylaxis Risk score (from [facility])>0 risk: 1 [place]CD applied [place] [facility] [place] SCD contraindicated: low risk/ambulating Pharmacological prophylaxis: LMWH Lines/Catheters IV C[facility]ter Type (from [facility]): Peripheral IV Urinary Cath still in place: No Assessment/Plan Hospital Course 1. Sepsis. Blood culture from [facility] is positive. Cellulitis right arm improved 2. Superficial thrombophlebitis right cephalic vein in the forearm 3. Polysubstance abuse 4. Anemia normocytic Assessment/Plan -bl cul pending -pt refused Suboxone -DVT proph Lovenox -GI proph. Protonix -ID is on case -c/w a/b VAnco Zosyn -c/w iron supplement -pt is going to rehab Result Diagram: 07/07/1843 07/07/18 0543 Results 24hrs Laboratory Tests Test 07/07/18 05:43 White Blood Count 6.2 Red Blood Count 3.74 L Hemoglobin 10.3 L Hematocrit 32.9 L Mean Corpuscular Volume 88.0 Mean Corpuscular Hemoglobin 27.5 L Mean Corpuscular Hemoglobin Concent 31.3 L Red Cell Distribution Width 13.6 Platelet Count 249 Mean Platelet Volume 9.5 Immature Granulocytes % 0.300 Neutrophils % 46.3 Lymphocytes % 36.6 Monocytes % 11.7 H Eosinophils % 4.3 Basophils % 0.8 Nucleated Red Blood Cells % 0.0 Immature Granulocytes # 0.020 Neutrophils # 2.9 Lymphocytes # 2.3 Monocytes # 0.7 Eosinophils # 0.3 Basophils # 0.1 Nucleated Red Blood Cells # 0.0 Sodium Level 140 Potassium Level 4.0 Chloride Level 102 Carbon Dioxide Level 31 Anion Gap 7 Blood Urea Nitrogen 12 Creatinine 0.73 Est Glomerular Filtrat Rate mL/min > 60 Glucose Level 94 Calcium Level 9.2 Subjective 24 Hr Interval Summary Musculoskeletal: swelling (decreased) Exam/Review of Systems Exam Vitals Vital Signs Date Temp Pulse Resp B/P (MAP) Pulse Ox O2 O2 Flow FiO2 Time Delivery Rate 07/07/18 98.3 73 18 100/55 98 02:00 (70) 07/06/18 Room Air 13:55 Intake and Output 07/06/18 07/06/18 07/07/18 1515:00 23:00 07:00 IntakeIntake Total 100 ml 700 ml 1400 ml BalanceBalance 100 ml 700 ml 1400 ml Exam impulsive Constitutional: alert, oriented Head: normocephalic Eyes: nl conjunctiva Neck: supple Cardiovascular: regular rate and rhythm Gastrointestinal: soft Extremities: edema (right arm) Results Results 24hrs Laboratory Tests Test 07/07/18 05:43 White Blood Count 6.2 Red Blood Count 3.74 L Hemoglobin 10.3 L Hematocrit 32.9 L Mean Corpuscular Volume 88.0 Mean Corpuscular Hemoglobin 27.5 L Mean Corpuscular Hemoglobin Concent 31.3 L Red Cell Distribution Width 13.6 Platelet Count 249 Mean Platelet Volume 9.5 Immature Granulocytes % 0.300 Neutrophils % 46.3 Lymphocytes % 36.6 Monocytes % 11.7 H Eosinophils % 4.3 Basophils % 0.8 Nucleated Red Blood Cells % 0.0 Immature Granulocytes # 0.020 Neutrophils # 2.9 Lymphocytes # 2.3 Monocytes # 0.7 Eosinophils # 0.3 Basophils # 0.1 Nucleated Red Blood Cells # 0.0 Sodium Level 140 Potassium Level 4.0 Chloride Level 102 Carbon Dioxide Level 31 Anion Gap 7 Blood Urea Nitrogen 12 Creatinine 0.73 Est Glomerular Filtrat Rate mL/min > 60 Glucose Level 94 Calcium Level 9.2 Medications Medication Current Medications Vancomycin HCl (Vanco Iv Per Pharmacy) VANCOMYCIN PER PHARMACY PER PROTOCOL XX ; Start 07/04/18 at 03:00 Piperacillin Sod/ Tazobactam Sod 100 ml @ 200 mls/hr Q8 IVPB Last administered on 07/07/18at 05:39; Admin Dose 200 MLS/HR; Start 07/04/18 at 06:00 Acetaminophen (Tylenol Tab) 650 mg Q6H PRN PO MILD PAIN(1-3)OR ELEVATED TEMP; Start 07/04/18 at 03:00 Ondansetron HCl (Zofran Tab) 4 mg Q6H PRN PO NAUSEA AND/OR VOMITING; Start 07/04/18 at 03:00 Pantoprazole (Protonix Tab) 40 mg DAILY@06 PO Last administered on 07/07/18at 05:39; Admin Dose 40 MG; Start 07/04/18 at 06:00 Vancomycin HCl 250 ml @ 125 mls/hr Q8H IVPB Last administered on 07/07/18at 06:44; Admin Dose 125 MLS/HR; Start 07/04/18 at 07:00 Non-Formulary Medication 0.5 ea TID BUCCAL Last administered on 07/06/18 08:30; Admin Dose 0.5 EA; Start 07/06/18 at 09:00; Stop 07/07/18 at 21:01 Non-Formulary Medication 0.5 ea BID BUCCAL ; Start 07/08/18 at 09:00; Stop 07/09/18 at 21:01 Enoxaparin Sodium (Lovenox) 40 mg DAILY SC Last administered on 07/06/18at 09:26; Admin Dose 40 MG; Start 07/04/18 at 14:00 Neomycin/ Polymyxin/ Bacitracin (Neosporin Topical Oint) 1 applic BID TOP Last administered on 07/06/18at 23:45; Admin Dose 1 APPLIC; Start 07/04/18 at 23:00 Nitroglycerin (Nitroglycerin (Sl Tab) 0.4 Mg) 1 tab Q5M PRN SL ANGINA Last administered on 07/04/18at 22:22; Admin Dose 1 TAB; Start 07/04/18 at 22:30 Polyethylene Glycol (Miralax) 17 gm DAILY PO Last administered on 07/06/18at 08:29; Admin Dose 17 GM; Start 07/05/18 at 16:30 Bisacodyl (Dulcolax) 5 mg BID PRN PO constipation; Start 07/05/18 at 16:30 Ferric Sodium Gluconate Complex 125 mg/Sodium Chloride 100 ml @ 100 mls/hr DAILY@1300 IVPB Last administered on 07/06/18at 12:50; Admin Dose 100 MLS/HR; Start 07/06/18 at 13:00; Stop 07/08/18 at 13:59 CLAUDIA LEMUS July 07, 2018 08:25
[2018-07-07] MEDS: [UNRECOGNIZED DRUG - OTHER] BUCCAL SCH ×3 (09:00→21:00)
[2018-07-07] MEDS: NALOXONE BUCCAL SCH ×3 (09:00→21:00)
[2018-07-07] MEDS: POLYETHYLENE GLYCOL 17 GM PACKET PO SCH (10:22)
[2018-07-07] MEDS: NEOMYC/POLYMYX/BACIT 30 GM OINT TOP SCH ×2 (10:22→21:00)
[2018-07-07] MEDS: ENOXAPARIN 40 MG/0.4 ML SYG SC SCH (10:22)
[2018-07-07] MEDS: SOD FERRIC GLUC COMPLX 125 MG in SOD CHLORIDE 0.9% 100 ML IVPB SCH (12:09)
[2018-07-07] MEDS: SOD CHLORIDE 0.9% 1,000 ML IV SCH (12:09)
[2018-07-07 14:00] VITALS: BP 112/59; PULSE 67; RESP 18
[2018-07-07] MEDS: METHADONE (1 MG/ML 5 ML PO UD SYG) PO SCH ×2 (14:00→21:57)
--- NOTE | 2018-07-07 16:47 | CONS ---
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 Findings suggest cellulitis. There is evidence of a filling defects/clot in a superficial, possibly basilic vein at the mid forearm. Recommend venous Doppler ultrasound of the upper extremity for further evaluation. MICRO/OTHER * (-)MRSA NARES * 07/04/18 BCx (-) PHYSICAL EXAMINATION: GENERAL: VSS, NAD, HEENT: AT, NC, NECK: WNL CHEST: Equal chest rise bilaterally without dyspnea on observation ABD: Soft, ND EXTREMITIES: Warm, dry RUEXT EDEMA/ erythema SKIN: No rash, no diaphoresis ID ASSESSMENT 22 yo M admit with: 1. Sepsis. Blood culture from [place] is positive. 2. Cellulitis right arm w/injection wounds 3. Left arm scrape wound 4. Superficial thrombophlebitis right cephalic vein in the forearm 5. Polysubstance abuse 6. Anemia normocytic 7. Tobaccoism - 1PPWeek (-)MRSA Nares (-)HBV/HCV ABX ALLERGIES: KNDA INVASIVES: PIV CURRENT ABX: DAY # =>Vanco IV + Zosyn ID RECOMMENDATIONS/PLAN: 1. Continue current ABX = he will need minimum 14 days 2. Still pending micro results from (+)BCx at [place] -- required to make final ABX recommendations * IF BCX result is sensitive to Quinolone -- would DC on high dose Quinolone to complete total 14 days. . Consultation Date/Type/Reason Admit Date/Time July 03, 2018 at 23:39 Initial Consult Date Date/Time of Note DATE: 07/07/18 TIME: 16:43 Exam/Review of Systems Exam Vitals Vital Signs Date Temp Pulse Resp B/P (MAP) Pulse Ox O2 O2 Flow FiO2 Time Delivery Rate 07/07/18 98.1 67 18 112/59 100 Room Air 14:00 (76) Intake and Output 07/06/18 07/06/18 07/07/18 1515:00 23:00 07:00 IntakeIntake Total 100 ml 700 ml 1400 ml BalanceBalance 100 ml 700 ml 1400 ml Results Result Diagram: 07/07/18 0543 07/07/18 0543 Results 24hrs Laboratory Tests Test 07/07/18 05:43 White Blood Count 6.2 Red Blood Count 3.74 L Hemoglobin 10.3 L Hematocrit 32.9 L Mean Corpuscular Volume 88.0 Mean Corpuscular Hemoglobin 27.5 L Mean Corpuscular Hemoglobin Concent 31.3 L Red Cell Distribution Width 13.6 Platelet Count 249 Mean Platelet Volume 9.5 Immature Granulocytes % 0.300 Neutrophils % 46.3 Lymphocytes % 36.6 Monocytes % 11.7 H Eosinophils % 4.3 Basophils % 0.8 Nucleated Red Blood Cells % 0.0 Immature Granulocytes # 0.020 Neutrophils # 2.9 Lymphocytes # 2.3 Monocytes # 0.7 Eosinophils # 0.3 Basophils # 0.1 Nucleated Red Blood Cells # 0.0 Sodium Level 140 Potassium Level 4.0 Chloride Level 102 Carbon Dioxide Level 31 Anion Gap 7 Blood Urea Nitrogen 12 Creatinine 0.73 Est Glomerular Filtrat Rate mL/min > 60 Glucose Level 94 Calcium Level 9.2 Medications Medication Current Medications Vancomycin HCl (Vanco Iv Per Pharmacy) VANCOMYCIN PER PHARMACY PER PROTOCOL XX ; Start 07/04/18 at 03:00 Piperacillin Sod/ Tazobactam Sod 100 ml @ 200 mls/hr Q8 IVPB Last administered on 07/07/18at 13:31; Admin Dose 200 MLS/HR; Start 07/04/18 at 06:00 Acetaminophen (Tylenol Tab) 650 mg Q6H PRN PO MILD PAIN(1-3)OR ELEVATED TEMP; Start 07/04/18 at 03:00 Ondansetron HCl (Zofran Tab) 4 mg Q6H PRN PO NAUSEA AND/OR VOMITING; Start 07/04/18 at 03:00 Pantoprazole (Protonix Tab) 40 mg DAILY@06 PO Last administered on 07/07/18at 05:39; Admin Dose 40 MG; Start 07/04/18 at 06:00 Vancomycin HCl 250 ml @ 125 mls/hr Q8H IVPB Last administered on 07/07/18at 15:30; Admin Dose 125 MLS/HR; Start 07/04/18 at 07:00 Non-Formulary Medication 0.5 ea TID BUCCAL Last administered on 07/06/18 08:30; Admin Dose 0.5 EA; Start 07/06/18 at 09:00; Stop 07/07/18 at 21:01 Non-Formulary Medication 0.5 ea BID BUCCAL ; Start 07/08/18 at 09:00; Stop 07/09/18 at 21:01 Enoxaparin Sodium (Lovenox) 40 mg DAILY SC Last administered on 07/07/18at 10:22; Admin Dose 40 MG; Start 07/04/18 at 14:00 Neomycin/ Polymyxin/ Bacitracin (Neosporin Topical Oint) 1 applic BID TOP Last administered on 07/07/18 10:22; Admin Dose 1 APPLIC; Start 07/04/18 at 23:00 Nitroglycerin (Nitroglycerin (Sl Tab) 0.4 Mg) 1 tab Q5M PRN SL ANGINA Last administered on 07/04/18at 22:22; Admin Dose 1 TAB; Start 07/04/18 at 22:30 Polyethylene Glycol (Miralax) 17 gm DAILY PO Last administered on 07/06/18at 08:29; Admin Dose 17 GM; Start 07/05/18 at 16:30 Bisacodyl (Dulcolax) 5 mg BID PRN PO constipation; Start 07/05/18 at 16:30 Ferric Sodium Gluconate Complex 125 mg/Sodium Chloride 100 ml @ 100 mls/hr DAILY@1300 IVPB Last administered on 07/07/18at 12:09; Admin Dose 100 MLS/HR; Start 07/06/18 at 13:00; Stop 07/08/18 at 13:59 Sodium Chloride 1,000 ml @ 70 mls/hr [id number] IV Last administered on 07/07/18at 12:09; Admin Dose 70 MLS/HR; Start 07/07/18 at 11:30 Methadone HCl (Methadone Liq) 10 mg Q8 PO ; Start 07/07/18 at 14:00 Miscellaneous Information (*Rx Drug Level Order Reminder*) VANCO TR LEVEL PRIOR ... 1400 ONCE XX ; Start 07/08/18 at 14:00; Stop 07/08/18 at 14:01 CHRIS POOLE NP July 07, 2018 16:47
[2018-07-07 20:33] VITALS: BP 111/61; PULSE 62; RESP 18
[2018-07-08 02:32] VITALS: BP 118/68; PULSE 53; RESP 18
[2018-07-08] MEDS: PIPER-TAZO 3.375 GM IV (PMX) 100 ML IVPB SCH (05:14)
[2018-07-08] MEDS: SOD CHLORIDE 0.9% 1,000 ML IV SCH ×2 (05:14→16:06)
[2018-07-08] MEDS: PANTOPRAZOLE (EC) 40 MG TAB PO SCH (06:00)
[2018-07-08] MEDS: METHADONE (1 MG/ML 5 ML PO UD SYG) PO SCH ×2 (06:00→15:30)
[2018-07-08] MEDS: VANCOMYCIN 1 GM 250 ML IVPB SCH ×2 (06:20→15:29)
[2018-07-08 07:25] VITALS: BP 110/63; PULSE 63; RESP 16
[2018-07-08] MEDS ORDERED: [UNRECOGNIZED DRUG - OTHER] BUCCAL SCH (09:00)
[2018-07-08] MEDS ORDERED: NALOXONE BUCCAL SCH (09:00)
[2018-07-08] MEDS: POLYETHYLENE GLYCOL 17 GM PACKET PO SCH (10:09)
[2018-07-08] MEDS: NEOMYC/POLYMYX/BACIT 30 GM OINT TOP SCH (10:10)
[2018-07-08] MEDS: ENOXAPARIN 40 MG/0.4 ML SYG SC SCH (10:11)
--- NOTE | 2018-07-08 11:38 | CONS ---
Assessment/Plan Assessment/Plan Assessment/Plan (Daily) Cellulitis right arm secondary to intravenous heroin and crystal methamphetamine Patient has not been screened for HIV or hepatitis High risk for withdrawal as patient uses approximately 4-5 times daily I have allowed patient to continue with his Suboxone but he only has 3-day supply after that we will begin him on methadone, no other opioids will be administered during his hospitalization patient does not complain of pain. Consultation Date/Type/Reason Admit Date/Time July 03, 2018 at 23:39 Date/Time of Note DATE: 07/08/18 TIME: 11:36 Hx of Present Illness Entry note for this 22-year-old male who I first saw in pain management consultation on July 05. Patient has a history of IV drug abuse for over 10 years, uses heroin and crystal methamphetamine. He was admitted to [facility] with right arm cellulitis secondary to dirty needlestick. Other medical problems include normocytic anemia according to medical records. Patient's mother is at the bedside. Family patient has been on treatment programs last time 5 years ago but still had some box on that mother brought given to nurses. Patient denies nausea vomiting chest pain shortness of breath cough. Denies past medical history of osteomyelitis pneumonia valvular heart disorders, and he has not been screened for hepatitis or HIV. Patient states he does share needles. Constitutional: chills; No no complaints, No improved, No diaphoresis, No disoriented, No febrile, No poor po, No requiring IVF, No requiring O2, No other Eyes: No no complaints, No pain, No discharge, No redness, No visual change, No other ENT: No no complaints, No bleeding, No pain, No congestion, No discharge, No dysphagia, No sore throat, No other Respiratory: No no complaints, No pain, No cough, No pleuritic pain, No shortness of breath, No sputum, No wheezing, No other Cardiovascular: No no complaints, No chest pain, No edema, No lightheadedness, No orthopenea, No palpitations, No paroxysmal nocturnal dyspnea, No other Genitourinary: No no complaints, No bleeding, No dysuria, No discharge, No flank pain, No hematuria, No other Musculoskeletal: No no complaints, No back pain, No bone/joint pain, No neck pain, No restricted range of motion, No swelling, No other Skin: erythema, skin lesions Neurologic: No no complaints, No confusion, No dizziness, No focal-weakness, No headache, No syncope, No seizure, No other Psychological: anxiety Past Medical History Medical History: no pertinent history Medications Current Medications Vancomycin HCl (Vanco Iv Per Pharmacy) VANCOMYCIN PER PHARMACY PER PROTOCOL XX ; Start 07/04/18 at 03:00 Piperacillin Sod/ Tazobactam Sod 100 ml @ 200 mls/hr Q8 IVPB Last administered on 07/08/18at 05:14; Admin Dose 200 MLS/HR; Start 07/04/18 at 06:00 Acetaminophen (Tylenol Tab) 650 mg Q6H PRN PO MILD PAIN(1-3)OR ELEVATED TEMP; Start 07/04/18 at 03:00 Ondansetron HCl (Zofran Tab) 4 mg Q6H PRN PO NAUSEA AND/OR VOMITING; Start 07/04/18 at 03:00 Pantoprazole (Protonix Tab) 40 mg DAILY@06 PO Last administered on 07/07/18at 05:39; Admin Dose 40 MG; Start 07/04/18 at 06:00 Vancomycin HCl 250 ml @ 125 mls/hr Q8H IVPB Last administered on 07/08/18at 06:20; Admin Dose 125 MLS/HR; Start 07/04/18 at 07:00 Non-Formulary Medication 0.5 ea BID BUCCAL ; Start 07/08/18 at 09:00; Stop 07/09/18 at 21:01 Enoxaparin Sodium (Lovenox) 40 mg DAILY SC Last administered on 07/08/18at 10:11; Admin Dose 40 MG; Start 07/04/18 at 14:00 Neomycin/ Polymyxin/ Bacitracin (Neosporin Topical Oint) 1 applic BID TOP Last administered on 07/08/18at 10:10; Admin Dose 1 APPLIC; Start 07/04/18 at 23:00 Nitroglycerin (Nitroglycerin (Sl Tab) 0.4 Mg) 1 tab Q5M PRN SL ANGINA Last administered on 07/04/18at 22:22; Admin Dose 1 TAB; Start 07/04/18 at 22:30 Polyethylene Glycol (Miralax) 17 gm DAILY PO Last administered on 07/08/18at 10:09; Admin Dose 17 GM; Start 07/05/18 at 16:30 Bisacodyl (Dulcolax) 5 mg BID PRN PO constipation; Start 07/05/18 at 16:30 Ferric Sodium Gluconate Complex 125 mg/Sodium Chloride 100 ml @ 100 mls/hr NEFTALY LY@1300 IVPB Last administered on 07/07/18at 12:09; Admin Dose 100 MLS/HR; Start 07/06/18 at 13:00; Stop 07/08/18 at 13:59 Sodium Chloride 1,000 ml @ 70 mls/hr [id number] IV Last administered on 07/08/18at 05:14; Admin Dose 70 MLS/HR; Start 07/07/18 at 11:30 Methadone HCl (Methadone Liq) 10 mg Q8 PO ; Start 07/07/18 at 14:00 Miscellaneous Information (*Rx Drug Level Order Reminder*) VANCO TR LEVEL P RIOR... 1400 ONCE XX ; Start 07/08/18 at 14:00; Stop 07/08/18 at 14:01 Allergies: Coded Allergies: No Known Allergy (Unverified , 07/04/18) Past Surgical History Past Surgical Hx: no surgical history, other (Mole removal) Social History Alcohol Use: none Smoking Status: Current every day smoker Drug Use: other (Heroin and crystal methamphetamine) Exam/Review of Systems Exam Vitals Vital Signs Date Temp Pulse Resp B/P (MAP) Pulse Ox O2 O2 Flow FiO2 Time Delivery Rate 07/08/18 98.4 63 16 110/63 100 Room Air 07:25 (79) Intake and Output 07/07/18 07/07/18 07/08/18 1515:00 23:00 07:00 IntakeIntake Total 850 ml 350 ml 1590 ml BalanceBalance 850 ml 350 ml 1590 ml Results Result Diagram: 07/07/18 0543 07/07/18 0543 Medications Medication Current Medications Vancomycin HCl (Vanco Iv Per Pharmacy) VANCOMYCIN PER PHARMACY PER PROTOCOL XX ; Start 07/04/18 at 03:00 Piperacillin Sod/ Tazobactam Sod 100 ml @ 200 mls/hr Q8 IVPB Last administered on 07/08/18at 05:14; Admin Dose 200 MLS/HR; Start 07/04/18 at 06:00 Acetaminophen (Tylenol Tab) 650 mg Q6H PRN PO MILD PAIN(1-3)OR ELEVATED TEMP; Start 07/04/18 at 03:00 Ondansetron HCl (Zofran Tab) 4 mg Q6H PRN PO NAUSEA AND/OR VOMITING; Start 07/04/18 at 03:00 Pantoprazole (Protonix Tab) 40 mg DAILY@06 PO Last administered on 07/07/18at 05:39; Admin Dose 40 MG; Start 07/04/18 at 06:00 Vancomycin HCl 250 ml @ 125 mls/hr Q8H IVPB Last administered on 07/08/18at 06:20; Admin Dose 125 MLS/HR; Start 07/04/18 at 07:00 Non-Formulary Medication 0.5 ea BID BUCCAL ; Start 07/08/18 at 09:00; Stop 07/09/18 at 21:01 Enoxaparin Sodium (Lovenox) 40 mg DAILY SC Last administered on 07/08/18at 10:11; Admin Dose 40 MG; Start 07/04/18 at 14:00 Neomycin/ Polymyxin/ Bacitracin (Neosporin Topical Oint) 1 applic BID TOP Last administered on 07/08/18at 10:10; Admin Dose 1 APPLIC; Start 07/04/18 at 23:00 Nitroglycerin (Nitroglycerin (Sl Tab) 0.4 Mg) 1 tab Q5M PRN SL ANGINA Last administered on 07/04/18at 22:22; Admin Dose 1 TAB; Start 07/04/18 at 22:30 Polyethylene Glycol (Miralax) 17 gm DAILY PO Last administered on 07/08/18at 10:09; Admin Dose 17 GM; Start 07/05/18 at 16:30 Bisacodyl (Dulcolax) 5 mg BID PRN PO constipation; Start 07/05/18 at 16:30 Ferric Sodium Gluconate Complex 125 mg/Sodium Chloride 100 ml @ 100 mls/hr DAILY@1300 IVPB Last administered on 07/07/18at 12:09; Admin Dose 100 MLS/HR; Start 07/06/18 at 13:00; Stop 07/08/18 at 13:59 Sodium Chloride 1,000 ml @ 70 mls/hr [id number] IV Last administered on 07/08/18at 05:14; Admin Dose 70 MLS/HR; Start 07/07/18 at 11:30 Methadone HCl (Methadone Liq) 10 mg Q8 PO ; Start 07/07/18 at 14:00 Miscellaneous Information (*Rx Drug Level Order Reminder*) VANCO TR LEVEL PRIOR... 1400 ONCE XX ; Start 07/08/18 at 14:00; Stop 07/08/18 at 14:01 SAMIRA CANELA July 08, 2018 11:38
[2018-07-08] MEDS: SOD FERRIC GLUC COMPLX 125 MG in SOD CHLORIDE 0.9% 100 ML IVPB SCH (13:16)
--- NOTE | 2018-07-08 14:05 | CONS ---
Assessment/Plan Assessment/Plan Hospital Course (Demo Recall) No acute events overnight patient looks comfortable afebrile. Right upper extremity with results edema and erythema Antimicrobials: Vanco Zosyn PHYSICAL EXAMINATION: GENERAL: Well-developed, well-nourished young man who is sleeping, arousable, in no distress. HEENT: Head atraumatic, normocephalic. NECK: Supple. CHEST: Rise symmetrical. Breath sounds diminished to bases. HEART: S1, S2. ABDOMEN: Soft, bowel sounds present. EXTREMITIES: Without edema or cyanosis Assessment: 1. Status post right upper extremity cellulitis 2. Heroine abuse 3. Bacteremia per report from another facility 4. Superficial thrombophlebitis of right upper extremity Plan: Patient is doing much better, repeat bld cx negative, 2D ECHO revealed no vegetations, continue IV vancomycin, discontinue Zosyn, await for final cultures from another facility, anticipate dc on oral abx as pt is not a candidate for outpatient PICC Consultation Date/Type/Reason Admit Date/Time July 03, 2018 at 23:39 Initial Consult Date Type of Consult id Date/Time of Note DATE: 07/08/18 TIME: 14:04 Exam/Review of Systems Exam Vitals Vital Signs Date Temp Pulse Resp B/P (MAP) Pulse Ox O2 O2 Flow FiO2 Time Delivery Rate 07/08/18 98.4 63 16 110/63 100 Room Air 07:25 (79) Intake and Output 07/07/18 07/07/18 07/08/18 1515:00 23:00 07:00 IntakeIntake Total 850 ml 350 ml 1590 ml BalanceBalance 850 ml 350 ml 1590 ml Results Result Diagram: 07/07/18 0543 07/07/18 0543 Medications Medication Current Medications Vancomycin HCl (Vanco Iv Per Pharmacy) VANCOMYCIN PER PHARMACY PER PROTOCOL XX ; Start 07/04/18 at 03:00 Piperacillin Sod/ Tazobactam Sod 100 ml @ 200 mls/hr Q8 IVPB Last administered on 07/08/18at 05:14; Admin Dose 200 MLS/HR; Start 07/04/18 at 06:00 Acetaminophen (Tylenol Tab) 650 mg Q6H PRN PO MILD PAIN(1-3)OR ELEVATED TEMP; Start 07/04/18 at 03:00 Ondansetron HCl (Zofran Tab) 4 mg Q6H PRN PO NAUSEA AND/OR VOMITING; Start 07/04/18 at 03:00 Pantoprazole (Protonix Tab) 40 mg DAILY@06 PO Last administered on 07/07/18 05:39; Admin Dose 40 MG; Start 07/04/18 at 06:00 Vancomycin HCl 250 ml @ 125 mls/hr Q8H IVPB Last administered on 07/08/18 06:20; Admin Dose 125 MLS/HR; Start 07/04/18 at 07:00 Non-Formulary Medication 0.5 ea BID BUCCAL ; Start 07/08/18 at 09:00; Stop 07/09/18 at 21:01 Enoxaparin Sodium (Lovenox) 40 mg DAILY SC Last administered on 07/08/18 10:11; Admin Dose 40 MG; Start 07/04/18 at 14:00 Neomycin/ Polymyxin/ Bacitracin (Neosporin Topical Oint) 1 applic BID TOP Last administered on 07/08/18 10:10; Admin Dose 1 APPLIC; Start 07/04/18 at 23:00 Nitroglycerin (Nitroglycerin (Sl Tab) 0.4 Mg) 1 tab Q5M PRN SL ANGINA Last administered on 07/04/18 22:22; Admin Dose 1 TAB; Start 07/04/18 at 22:30 Polyethylene Glycol (Miralax) 17 gm DAILY PO Last administered on 07/08/18at 10:09; Admin Dose 17 GM; Start 07/05/18 at 16:30 Bisacodyl (Dulcolax) 5 mg BID PRN PO constipation; Start 07/05/18 at 16:30 Sodium Chloride 1,000 ml @ 70 mls/hr [id number] IV Last administered on 07/08/18 05:14; Admin Dose 70 MLS/HR; Start 07/07/18 at 11:30 Methadone HCl (Methadone Liq) 10 mg Q8 PO ; Start 07/07/18 at 14:00 THOMAS JAIMES NP July 08, 2018 14:05
[2018-07-08 14:13] VITALS: BP 112/63; PULSE 70; RESP 16
--- NOTE | 2018-07-08 15:39 | PDOCDIS ---
Discharge Instructions DIAGNOSIS Discharge Diagnosis cellulitis CONDITION [id number] Patient Condition: [id number] Fair HOME CARE INSTRUCTIONS: [id number] Diet Instructions: [id number] Regular ACTIVITY: [id number] Activity Restrictions: [id number] Slowly Increase Activity Rest between Activity Avoid heavy lifting FOLLOW UP/APPOINTMENTS Follow-up Plan Fu PCP in 1 week fu Drug rehab center avoid drugs return to Er if has severe pain/ erthymea/fevers and chills AB HATFIELD MD July 08, 2018 15:39
[2018-07-08] MEDS ORDERED: AMOX1TAB10 PO (15:41)
--- NOTE | 2018-07-09 07:25 | DS ---
DATE OF ADMISSION: 07/03/2018 DATE OF DISCHARGE: 07/08/2018 HISTORY OF PRESENT ILLNESS AND HOSPITAL COURSE: This is a 22-year-old male with history of polysubst ance use of injections of heroin, had edema and pain in the right arm. The patient was seen in the [facility] on 07/03/2018. An ultrasound of the extremity showed superficial thrombophlebitis cephalic vein and diffuse edematous ____ and echogenic soft tissue concerning cellulitis, formed flu id collection to suggest abscess. White count was 9.5, hemoglobin 12.3. BMP within normal limit. T he patient was transferred due to insurance reasons. On admission in the hospital, vital signs were stable. White count was 6.0. The patient had upper extremity CT that showed diffuse soft tissue swe lling without focal abscess. Findings suggest cellulitis. There is evidence of filling defects in t he superficial basilic vein on mid forearm. The patient was started on broad-spectrum antibiotics wi vancomycin and Zosyn. The patient was also seen by Dr. Webb for detoxification. The patient was continued on Suboxone. The patient had a good family support. Mother and sister are all was pre sent at the bedside. The patient was seen by Dr. Webb and patient was high risk for withdrawal a s the patient uses 4 to 5 times daily and we wanted the patient to be started on methadone. The janeth ent was started on methadone here; however, the patient refused and the patient cannot get any other opioids and was not having any pain. The patient's condition was clinically improving every day with improvement in the cellulitis. Blood cultures were checked from [facility] that grew out s trep pyogenes. Per ID, patient is stable to be discharged to home on amoxicillin. The blood culture s were pansensitive. Per Dr. Webb, patient does not need to go on methadone, should follow in e drug rehab clinic. Asked patient to go home on methadone have a high risk of drug overdosage and p no said that he had a family member who owns a drug rehab and probably will check out there from today. Echo was done that was negative for any vegetations. The patient was afebrile and the rednes s and swelling of the right arm had clinically improved, stable to be discharged to home per ID. FINAL DIAGNOSES: 1. Sepsis. Blood culture from [place] is positive for strep pyogenes. Cellulitis of the right a rm, resolved. 2. Superficial thrombophlebitis cephalic vein in the forearm, resolved. 3. Polysubstance abuse, especially heroin. 4. Anemia and normocytic. DISCHARGE CONDITION: Stable. DISCHARGE DIET: Regular. DISCHARGE MEDICATIONS: Amoxicillin 875 p.o. b.i.d. for 7 days. The patient was instructed to follo w up with PCP in 1 to 2 weeks. He was given a referral to drug toxicity center; however, the patient will follow up with his own drug rehab center which is own by family in the next days. Sister was p resent at the bedside and also verbalized understanding. The patient has a good family support. Soc ial services were also consulted before discharge. Dictated By: AB CORTES/SHAYNA Conf#: [id number] DID#: [id number]
--- NOTE | 2018-07-09 09:10 | RADRPT ---
Vent Rate: 76 bpm RR Interval: 0 msec DC Interval: 126 msec QRS Duration: 92 msec QT Interval: 358 msec QTC Interval: 402 msec P-R-T [place]: 35 - 91 - 57 degrees Normal sinus rhythm Rightward axis Borderline ECG Electronically Signed By: Ramiro Salvador
== END 2018-07-08 17:55 | disposition home or self-care (01) | DRG 872 ==
LOC: PP2 23:39 → TEL 07-04 04:10 → PP2 07-06 13:52
PROVIDERS: ADMIT Internal Medicine; ATTEND Internal Medicine
DX: A40.0 Sepsis due to streptococcus, group A (principal); L03.113 Cellulitis of right upper limb; F11.20 Opioid dependence, uncomplicated; F17.200 Nicotine dependence, unspecified, uncomplicated; I80.8 Phlebitis and thrombophlebitis of other sites; D64.9 Anemia, unspecified; F15.90 Other stimulant use, unspecified, uncomplicated
CPT/HCPCS: 73200; 80048; 80202; 82565; 84484; 84520; 85025; 86704; 86709; 86803; 87081; 87340; 87536; 93005; 93306; J1650; J2543; J2916; J3370; J7030; J7050; Q9967